=== PATIENT | male | born 1955 | race Caucasian/White ===

== ENCOUNTER 2017-03-18 16:05 | Inpatient (IN) | payer BC ==
[~2017-03-18] VITALS: Ht 182.9 cm; Wt 107.0 kg
[~2017-03-18 16:05] MED LIST: ALEVE220 M1 PO; ASPIRIN325 MG PO; BENADRYL25 M1 PO; BENAZEPRIL10 MG PO; FLEXERIL PO; LORTAB 5/3255 MG PO; METFORMIN500 MG PO; NO HOME MEDS PER PT; OMEPRAZOLE20 MG PO; ULTRAM50 M1 PO
[2017-03-18 16:21] VITALS: BP 169/103
[2017-03-18 17:36] LABS: HEMATOCRIT 36.6 % (39.0-50.0); HEMOGLOBIN 12.9 g/dl (14.0-18.0); IMMATURE GRANULOCYTES 0.3 % (0.0-1.0); MEAN CELL VOLUME 85.1 fL CALC (80.0-100.0); MEAN CORPUSCULAR HGB CONC 35.2 g/L CALC (32.0-36.0); NEUT# 10.59 thou/uL (1.82-7.42); RED BLOOD COUNT 4.3 mill/uL (4.70-6.10); RED CELL DISTRI WIDTH 13.1 % (11.5-15.5)
[2017-03-18 17:42] LABS: ALBUMIN 3.8 g/dL (3.2-5.0); ALKALINE PHOSPHATASE 79 u/l (38-126); ANION GAP 15 (6-22 (CALC)); BILIRUBIN, TOTAL 0.8 mg/dL (0.0-1.4); BUN 9 mg/dL (9-20); BUN/CREATININE RATIO 9 (12-20 (CALC)); CARBON DIOXIDE 24 mmol/l (22-30); CHLORIDE 104 mmol/l (95-108); GFR > 60 ML/MIN (>=60 (CALC)); GFR FOR AFR.AMER. > 60 ML/MIN (>=60 (CALC)); GLUCOSE 102 mg/dL (75-110); POTASSIUM 3.7 mmol/l (3.5-5.1); SGOT/AST 15 u/l (17-59); SGPT/ALT 26 u/l (21-72); SODIUM 139 mmol/l (137-146); TOTAL PROTEIN 7.2 g/dL (6.3-8.2)
[2017-03-18 19:46] VITALS: BP 149/98
[2017-03-18 19:50] VITALS: BP 120/67
[2017-03-18 21:19] LABS: URINE BILIRUBIN - DIPSTICK NEGATIVE (NEGATIVE); URINE BLOOD DIPSTICK NEGATIVE (NEGATIVE); URINE CLARITY CLEAR; URINE COLOR YELLOW; URINE GLUCOSE - DIPSTICK NEGATIVE (NEGATIVE); URINE KETONE NEGATIVE (NEGATIVE); URINE LEUK ESTERASE NEGATIVE (NEGATIVE); URINE NITRITE - DIPSTICK NEGATIVE (Negative); URINE PH 6.5 (4.5-8.0); URINE PROTEIN - DIPSTICK NEGATIVE (NEG-TRACE)
[2017-03-19] VITALS (7 sets, daily range): BP systolic 109–152; BP diastolic 67–91
[2017-03-19 05:49] LABS: HEMATOCRIT 35.7 % (39.0-50.0); HEMOGLOBIN 12.4 g/dl (14.0-18.0); IMMATURE GRANULOCYTES 0.4 % (0.0-1.0); MEAN CELL VOLUME 86.4 fL CALC (80.0-100.0); MEAN CORPUSCULAR HGB CONC 34.7 g/L CALC (32.0-36.0); NEUT# 8.08 thou/uL (1.82-7.42); RED BLOOD COUNT 4.13 mill/uL (4.70-6.10); RED CELL DISTRI WIDTH 13.1 % (11.5-15.5)
[2017-03-19 05:53] LABS: ANION GAP 13 (6-22 (CALC)); BUN 9 mg/dL (9-20); BUN/CREATININE RATIO 8 (12-20 (CALC)); CALCIUM 8.4 mg/dL (8.4-10.2); CARBON DIOXIDE 26 mmol/l (22-30); CHLORIDE 104 mmol/l (95-108); CREATININE 1.1 mg/dL (0.7-1.3); GFR > 60 ML/MIN (>=60 (CALC)); GFR FOR AFR.AMER. > 60 ML/MIN (>=60 (CALC)); GLUCOSE 125 mg/dL (75-110); POTASSIUM 4.3 mmol/l (3.5-5.1); SODIUM 139 mmol/l (137-146)
[2017-03-20 04:22] VITALS: BP 149/83
[2017-03-20 05:34] LABS: HEMATOCRIT 34.6 % (39.0-50.0); HEMOGLOBIN 12.2 g/dl (14.0-18.0); IMMATURE GRANULOCYTES 1.3 % (0.0-1.0); MEAN CELL VOLUME 86.1 fL CALC (80.0-100.0); MEAN CORPUSCULAR HGB 30.3 pG CALC (26.0-32.0); MEAN CORPUSCULAR HGB CONC 35.3 g/L CALC (32.0-36.0); NEUT# 7.01 thou/uL (1.82-7.42); RED BLOOD COUNT 4.02 mill/uL (4.70-6.10)
[2017-03-20 05:40] LABS: ANION GAP 12 (6-22 (CALC)); BUN 9 mg/dL (9-20); BUN/CREATININE RATIO 8 (12-20 (CALC)); CALCIUM 8.5 mg/dL (8.4-10.2); CARBON DIOXIDE 26 mmol/l (22-30); CHLORIDE 106 mmol/l (95-108); CREATININE 1.1 mg/dL (0.7-1.3); GFR > 60 ML/MIN (>=60 (CALC)); GFR FOR AFR.AMER. > 60 ML/MIN (>=60 (CALC)); GLUCOSE 149 mg/dL (75-110); POTASSIUM 4.4 mmol/l (3.5-5.1); SODIUM 140 mmol/l (137-146)
[2017-03-20 08:29] VITALS: BP 172/88
[2017-03-20 11:06] VITALS: BP 143/86
[2017-03-20 14:57] VITALS: BP 161/89
[2017-03-20 19:39] VITALS: BP 146/81
[2017-03-20 23:26] VITALS: BP 114/68
[2017-03-21 05:26] VITALS: BP 149/90
[2017-03-21 07:27] VITALS: BP 175/92
[2017-03-21 08:40] VITALS: BP 148/88
[2017-03-21] MEDS ORDERED: METRONIDAZOL500 MG PO (12:45)
[2017-03-21] MEDS ORDERED: CIPROFLOXACN500 MG PO (12:45)
[2017-03-21] MEDS ORDERED: AMLODIPINE BESYL5 MG PO (12:45)
[2017-03-21] MEDS ORDERED: FLORASTOR250 M1 PO (12:45)
[2017-03-21] MEDS ORDERED: LOPRESSOR 550 MG/TAB PO (12:45)
== END 2017-03-21 13:40 | disposition home or self-care (01) | DRG 392 ==
LOC: ENPENDDIS → MS2 16:05
PROVIDERS: Internal Medicine; ADMIT Internal Medicine; ATTEND Internal Medicine
DX: K57.32 Diverticulitis of large intestine without perforation or abscess without bleeding (principal); I47.2 Ventricular tachycardia; E11.9 Type 2 diabetes mellitus without complications; I10 Essential (primary) hypertension; K21.9 Gastro-esophageal reflux disease without esophagitis; F17.210 Nicotine dependence, cigarettes, uncomplicated; Z79.84 Long term (current) use of oral hypoglycemic drugs
CPT/HCPCS: J1650

== ENCOUNTER 2017-10-30 06:00 | Day surgery (SDC) | payer BC ==
[~2017-10-30] VITALS: Ht 185.4 cm; Wt 105.2 kg
[~2017-10-30 06:00] MED LIST changes: +AMLODIPINE BESYL5 MG PO; +CIPROFLOXACN500 MG PO; +FLORASTOR250 M1 PO; +LOPRESSOR 550 MG/TAB PO; +METRONIDAZOL500 MG PO
[2017-10-30 08:33] VITALS: BP 115/62
== END 2017-10-30 08:15 | disposition home or self-care (01) | DRG 392 ==
LOC: ENDO 06:00 → ORM 07:00 → ENDO 08:15
PROVIDERS: ATTEND Surgery
PROC: 0DBN8ZX Excision of Sigmoid Colon, Via Natural or Artificial Opening Endoscopic, Diagnostic (ICD-10-PCS; principal; 2017-10-30)
DX: K57.30 Diverticulosis of large intestine without perforation or abscess without bleeding (principal); K63.5 Polyp of colon; I10 Essential (primary) hypertension

== ENCOUNTER 2017-12-28 23:24 | Inpatient (IN) | payer BC ==
[~2017-12-28] VITALS: Ht 182.9 cm; Wt 105.5 kg
--- NOTE | 2017-12-28 23:30 | NUR ---
PT AMBULATING TO ROOM, NO OBVIOUS DISTRESS NOTED AT THIS TIME.
[2017-12-29] VITALS (7 sets, daily range): BP systolic 138–181; BP diastolic 77–96
[2017-12-29 00:14] LABS: URINE BILIRUBIN - DIPSTICK NEGATIVE (NEGATIVE); URINE BLOOD DIPSTICK NEGATIVE (NEGATIVE); URINE COLOR YELLOW; URINE GLUCOSE - DIPSTICK NEGATIVE (NEGATIVE); URINE KETONE NEGATIVE (NEGATIVE); URINE LEUK ESTERASE NEGATIVE (NEGATIVE); URINE NITRITE - DIPSTICK NEGATIVE (Negative); URINE PH 5.5 (4.5-8.0); URINE PROTEIN - DIPSTICK NEGATIVE (NEG-TRACE); URINE SPECIFIC GRAVITY 1.025; URINE UROBILINOGEN - DIPSTICK 0.2 E.U./dL (0.2)
[2017-12-29 00:15] LABS: URINE CLARITY CLEAR
[2017-12-29 00:17] LABS: HEMATOCRIT 34.1 % (39.0-50.0); HEMOGLOBIN 12.4 g/dl (14.0-18.0); IMMATURE GRANULOCYTES 0.4 % (0.0-1.0); MEAN CELL VOLUME 86.1 fL CALC (80.0-100.0); MEAN CORPUSCULAR HGB 31.3 pG CALC (26.0-32.0); MEAN CORPUSCULAR HGB CONC 36.4 g/L CALC (32.0-36.0); NEUT# 11.98 thou/uL (1.82-7.42); RED BLOOD COUNT 3.96 mill/uL (4.70-6.10); RED CELL DISTRI WIDTH 12.3 % (11.5-15.5)
--- NOTE | 2017-12-29 00:30 | NUR ---
pt resting comfortably with spouse by side. Bolus infusing, pain meds IVP, Antiemetic IM
[2017-12-29 00:34] LABS: ALBUMIN 4.2 g/dL (3.2-5.0); ALKALINE PHOSPHATASE 83 u/l (38-126); AMYLASE 290 u/l (30-110); ANION GAP 22 (6-22 (CALC)); BILIRUBIN, TOTAL 0.7 mg/dL (0.0-1.4); BUN 19 mg/dL (9-20); BUN/CREATININE RATIO 14 (12-20 (CALC)); CARBON DIOXIDE 19 mmol/l (22-30); CHLORIDE 108 mmol/l (95-108); CREATININE 1.4 mg/dL (0.7-1.3); GFR 52 ML/MIN (>=60 (CALC)); GFR FOR AFR.AMER. > 60 ML/MIN (>=60 (CALC)); POTASSIUM 4.5 mmol/l (3.5-5.1); SGOT/AST 22 u/l (17-59); SGPT/ALT 22 u/l (21-72); SODIUM 144 mmol/l (137-146); TOTAL PROTEIN 7.3 g/dL (6.3-8.2)
[2017-12-29 00:46] LABS: MYOGLOBIN 33 ng/mL (0 - 121)
[2017-12-29 00:47] LABS: LIPASE 2006 u/l (23-300)
--- NOTE | 2017-12-29 01:00 | NUR ---
Pt watching TV with spouse at bedside. Awaiting decision on admission
--- NOTE | 2017-12-29 02:59 | NUR ---
Report called to Bert on Med/Surg.
--- NOTE | 2017-12-29 03:05 | NUR ---
PATIENT ARRIVED TO THE FLOOR IN STABLE CONDITION VIA STRETCHER AND ACCOMPANIED BY ED NURSE. SETTLED PT TO BED AND THEN WEIGHED. ORIENT PT TO ROOM CALL SYSTEM. BED IN LOW POSITION AND CALL LIGHT IN REACH.
--- NOTE | 2017-12-29 03:20 | NUR ---
Transported to room via stretcher.
--- NOTE | 2017-12-29 07:19 | NUR ---
SHIFT CHANGE REPORT FROM LIYAH MORENO AWAKE AND ALERT RESTING IN BED, C/O ACHING PAIN TO MID-RIGHT ABDOMEN @ 8, IVF INFUSING, CALL FLORES IN REACH, WILL CONTINUE TO MONITOR AND ADDRESS NEEDS.
[2017-12-29 10:16] LABS: HEMATOCRIT 32.3 % (39.0-50.0); HEMOGLOBIN 11.8 g/dl (14.0-18.0); IMMATURE GRANULOCYTES 0.5 % (0.0-1.0); MEAN CELL VOLUME 86.6 fL CALC (80.0-100.0); MEAN CORPUSCULAR HGB 31.6 pG CALC (26.0-32.0); MEAN CORPUSCULAR HGB CONC 36.5 g/L CALC (32.0-36.0); NEUT# 7.54 thou/uL (1.82-7.42); RED BLOOD COUNT 3.73 mill/uL (4.70-6.10); RED CELL DISTRI WIDTH 12.4 % (11.5-15.5)
[2017-12-29 10:38] LABS: ANION GAP 15 (6-22 (CALC)); BUN 15 mg/dL (9-20); BUN/CREATININE RATIO 11 (12-20 (CALC)); CARBON DIOXIDE 25 mmol/l (22-30); CHLORIDE 108 mmol/l (95-108); CREATININE 1.4 mg/dL (0.7-1.3); GFR 52 ML/MIN (>=60 (CALC)); GFR FOR AFR.AMER. > 60 ML/MIN (>=60 (CALC)); LIPASE 681 u/l (23-300); POTASSIUM 4.1 mmol/l (3.5-5.1); SODIUM 144 mmol/l (137-146)
--- NOTE | 2017-12-29 12:00 | NUR ---
DR MEMBRENO HERE ROUNDING WITH PT AND WROTE ORDERS, PAIN ISSUE ADDRESSED, CALL FLORES IN REACH.
--- NOTE | 2017-12-29 12:00 | NUR ---
TEMPERATURE BEING MONITORED, NO NEW COMPLAINS, ALL NEEDS ADDRESSED, CALL FLORES IN REACH.
--- NOTE | 2017-12-29 16:00 | NUR ---
ATE LIQUID MEAL AND TOLERATED, ALL NEEDS ADDRESSED, CALL FLORES IN REACH.
--- NOTE | 2017-12-29 16:22 | NUR ---
RESTING IN BED, TEMPERATURE REMAINS SLIGHTLY ELEVATED WITH FLUCTUATIONS, DR MEMBRENO NOTIFIED OF LAST RESULT AND GAVE ORDERS FOR CULTURES, PT INFORMED OF PLAN AND STATED UNDERSTANDING.
--- NOTE | 2017-12-29 19:25 | NUR ---
REPORT RECIEVED; PT RESTING IN BED. PT DENIES PAIN AT THIS TIME. SAFETY PRECAUTIONS REINFORCED. IV PATENT. FREQUENT ROUNDS MADE. CALL LIGHT WITHIN REACH.
--- NOTE | 2017-12-29 20:15 | NUR ---
PT WOKE FOR ASSESSMENT; ALERT AND ORIENTED. RESP EVEN AND UNLABORED; NO DISTRESS NOTED. ABD DISTENDED; SOFT. HYPOACTIVE BOWEL SOUNDS NOTED. PT STATED SOME "ABDOMINAL TENDERNESS" IN THE LOWER ABDOMEN. PEDEAL PULSES PALPATED BILAT. IV LAC PATENT; NO REDNESS OR EDEMA NOTED. PT ENCOURAGED TO CALL FOR ASSISTANCE. CALL LIGHT WITHIN REACH.
--- NOTE | 2017-12-30 00:15 | NUR ---
RESP EVEN AND UNLABORED. IV PATENT; NO REDNESS OR EDEMA NOTED. CALL LIGHT WITHIN REACH.
[2017-12-30 03:36] VITALS: BP 134/78
--- NOTE | 2017-12-30 04:30 | NUR ---
RESP EVEN AND UNLABORED; ASSESSMENT UNCHANGED. IV PATENT; NO EDEMA OR REDNESS NOTED. CALL LIGHT WITHIN REACH.
[2017-12-30 04:56] LABS: HEMATOCRIT 30.1 % (39.0-50.0); IMMATURE GRANULOCYTES 0.3 % (0.0-1.0); MEAN CELL VOLUME 87.5 fL CALC (80.0-100.0); MEAN CORPUSCULAR HGB CONC 36.5 g/L CALC (32.0-36.0); NEUT# 6.69 thou/uL (1.82-7.42); RED BLOOD COUNT 3.44 mill/uL (4.70-6.10); RED CELL DISTRI WIDTH 12.4 % (11.5-15.5)
[2017-12-30 05:14] LABS: ANION GAP 16 (6-22 (CALC)); BUN 12 mg/dL (9-20); BUN/CREATININE RATIO 9 (12-20 (CALC)); CARBON DIOXIDE 22 mmol/l (22-30); CHLORIDE 110 mmol/l (95-108); CREATININE 1.4 mg/dL (0.7-1.3); GFR 52 ML/MIN (>=60 (CALC)); GFR FOR AFR.AMER. > 60 ML/MIN (>=60 (CALC)); LIPASE 268 u/l (23-300); POTASSIUM 4.2 mmol/l (3.5-5.1); SODIUM 144 mmol/l (137-146)
[2017-12-30 07:10] VITALS: BP 157/81
--- NOTE | 2017-12-30 07:35 | NUR ---
PT. IS AWAKE IN BED WATCHING TV. PATIENT IS ALERT AND ORIENTED X3. PERRLA, 3MM. PT'S LUNGS ARE CLEAR BILATERALLY. RESP. EVEN AND UNLABORED.CAP REFILL <3. ABDOMEN IS SOFT BUT DISTENDED. PT COMPLAINS OF PAIN IN THE LOWER ABDOMEN. PATIENT STATES PAIN TO BE A 7/10 AND THE QUALITY IS SHARP.HYPERACTIVE BOWEL SOUNDS NOTED. NO COMPLAINTS OF PAIN UPON URINATING. 20 GAUGE IN LAC INFUSING NORMAL SALINE AT 150. IV IS INTACT AND PATENT. PULSES ARE STRONG THROUGHOUT. NO EDEMA NOTED IN LEGS. PT. REMINDED TO CALL IF HE NEEDS ANYTHING. CALL LIGHT WITHIN REACH. WILL CONTINUE TO MONITOR.
--- NOTE | 2017-12-30 08:26 | NUR ---
PATIENT MEDICATED PER MD ORDER. MORPHINE 4MG IV Q4 GIVEN FOR ABDOMINAL PAIN.MEDICATION GIVEN BY WILEY REYNA. PT STATES PAIN IS A 7-8 AND HAS BECOME A STABBING PAIN.PT IS CURRENTLY SITTING UP IN RECLINER DOING A CROSS WORD PUZZEL. MEDICATION GIVEN. WILL CONTINUE TO MONITOR.
--- NOTE | 2017-12-30 08:30 | NUR ---
ASSESSMENT IS COMPLTED: IV SITE IS FREE FROM REDNESS OR EDEMA. BREATH SOUNDS ARE CLEAR, BILATERALLY, C/O LOWER ABD PAIN. HR IS REG, PULSES ARE STRONG X4. CONTINUE TO OSBERVE AND MONITOR.
[2017-12-30 08:52] LABS: CHOLESTEROL HDL RATIO 7.1 (<4.4 (CALC))
--- NOTE | 2017-12-30 09:00 | NUR ---
PAIN ASSESSMENT AFTER MEDICATION GIVEN. PT STATES THAT HIS PAIN IS STILL A 7/10 AND HAS NOT CHANGED IN QUALITY. PT IS STILL SITTING IN HIS RECLINER DOING A CROSS WORD PUZZLE. PT SPOUSE IS IN ROOM. WILL CONTINUE TO MONITOR.
[2017-12-30 11:24] VITALS: BP 147/81
--- NOTE | 2017-12-30 11:25 | NUR ---
IV SITE NEEDED TO BE CHANGED DUE TO STARTING TO BLEED, PINK, AND THEN HURTIMG PT. NEW IV SITE OBTAINED IN AFTER 3RD ATTEMPT. WITH 22,
--- NOTE | 2017-12-30 12:15 | NUR ---
PT IS SITTING UP IN THE BED, WITHNO DISTRESS NOTED. IV SITE IS FREE FROM REDNESS OR EDEMA. CONTINUE TO OBSERVE AND MONITOR.
--- NOTE | 2017-12-30 13:20 | NUR ---
IV SITE DISCONTINEUD CATHETER INTACT. NO REDNESS OR EDEMA. DISCHARGE INSTRUCTIONS GIVEN AND VERBALIZED UNDERSTANDING. Discharge instructions given. Patient verbalizes understanding of same. Discharged in poor condition via Wheelchair to Home with family. All belongings sent with pt.
== END 2017-12-30 13:40 | disposition home or self-care (01) | DRG 440 ==
LOC: ED 23:24 → ED-I 12-29 02:04 → ED 12-29 02:05 → MS2 12-29 02:06
PROVIDERS: Emergency Medicine; Nurse Practitioner Family; ADMIT Internal Medicine; ATTEND Internal Medicine
DX: K85.90 Acute pancreatitis without necrosis or infection, unspecified (principal); E11.9 Type 2 diabetes mellitus without complications; I10 Essential (primary) hypertension; K21.9 Gastro-esophageal reflux disease without esophagitis; F17.210 Nicotine dependence, cigarettes, uncomplicated

== ENCOUNTER 2021-06-22 10:57 | Emergency (ER) | payer OTHER ==
[2021-06-22 11:40] LABS: HEMATOCRIT 35.9 % (39.0-50.0); IMMATURE GRANULOCYTES 0.1 % (0.0-5.0); MEAN CELL VOLUME 88.6 fL CALC (80.0-100.0); MEAN CORPUSCULAR HGB 29.6 pG CALC (26.0-32.0); MEAN CORPUSCULAR HGB CONC 33.4 g/dL CAL (32.0-36.0); NEUT# 8.33 thou/uL (1.82-7.42); RED BLOOD COUNT 4.05 mill/uL (4.70-6.10); RED CELL DISTRI WIDTH 14.6 % (11.5-15.5)
[2021-06-22 13:36] LABS: ALBUMIN 3.6 g/dL (3.2-5.0); ALKALINE PHOSPHATASE 82 u/l (38-126); AMYLASE 73 u/l (30-110); BILIRUBIN, TOTAL 0.6 mg/dL (0.0-1.4); CHLORIDE 98 mmol/l (95-108); CREATININE 1.7 mg/dL (0.7-1.3); GFR 41 ML/MIN (>=60 (CALC)); GFR FOR AFR.AMER. 49 ML/MIN (>=60 (CALC)); LIPASE 111 u/l (23-300); MAGNESIUM 1.3 mg/dL (1.6-2.3); SGOT/AST 36 u/l (19-48); TOTAL PROTEIN 7.2 g/dL (6.3-8.2)
[2021-06-22 13:43] LABS: ANION GAP 15 (6-22 (CALC)); BUN 37 mg/dL (8-23); BUN/CREATININE RATIO 22 (12-20 (CALC)); CARBON DIOXIDE 27 mmol/l (22-30); SODIUM 135 mmol/l (137-146)
[2021-06-22 15:18] VITALS: BP 136/66
[2021-11-03] MEDS ORDERED: NORVASC5 M1 PO (10:04)
[2021-11-03] MEDS ORDERED: LANTUS SOLOSTAR SC (10:05)
[2021-11-03] MEDS ORDERED: HYDROCODONE BIT1 TA9 PO (10:05)
[2021-11-03] MEDS ORDERED: FUROSEMIDE20 MG PO (10:06)
[2021-11-03] MEDS ORDERED: FLUOXETINE20 MG PO (10:06)
[2021-11-03] MEDS ORDERED: CLOPIDOGREL75 MG PO (10:06)
[2021-11-03] MEDS ORDERED: AMIODARONE HCL200 MG PO (10:06)
[2021-11-03] MEDS ORDERED: ELIQUIS2.5 MG PO (10:07)
[2021-11-03] MEDS ORDERED: ROSUVASTATIN CA20 MG PO (10:07)
[2021-11-03] MEDS ORDERED: METOPROLOL100 M1 PO (10:07)
[2021-11-03] MEDS ORDERED: AMITRIPTYLINE H10 MG PO (10:07)
== END 2021-06-22 15:24 | disposition home or self-care (01) ==
LOC: ED 10:57
DX: E11.65 Type 2 diabetes mellitus with hyperglycemia (principal); I10 Essential (primary) hypertension; M79.89 Other specified soft tissue disorders; L53.8 Other specified erythematous conditions; F17.200 Nicotine dependence, unspecified, uncomplicated; Z79.4 Long term (current) use of insulin; Z89.511 Acquired absence of right leg below knee; Z86.14 Personal history of Methicillin resistant Staphylococcus aureus infection; Z20.822 Contact with and (suspected) exposure to COVID-19
CPT/HCPCS: J3475

== ENCOUNTER 2021-10-20 12:42 | Emergency (ER) | payer OTHER ==
[~2021-10-20] VITALS: Ht 185.4 cm; Wt 106.0 kg
[2021-10-20 14:25] LABS: HEMATOCRIT 32.1 % (39.0-50.0); HEMOGLOBIN 10.9 g/dl (14.0-18.0); IMMATURE GRANULOCYTES 0.2 % (0.0-5.0); MEAN CELL VOLUME 92.8 fL CALC (80.0-100.0); MEAN CORPUSCULAR HGB 31.5 pG CALC (26.0-32.0); NEUT# 7.26 thou/uL (1.82-7.42); RED BLOOD COUNT 3.46 mill/uL (4.70-6.10); RED CELL DISTRI WIDTH 17.1 % (11.5-15.5)
[2021-10-20 14:33] LABS: ALBUMIN 4.1 g/dL (3.2-5.0); BILIRUBIN, TOTAL 0.7 mg/dL (0.0-1.4); CREATININE 2.2 mg/dL (0.7-1.3); TOTAL PROTEIN 8.2 g/dL (6.3-8.2)
[2021-10-20 14:45] LABS: POTASSIUM 5.3 mmol/l (3.5-5.1)
[2021-10-20 15:30] VITALS: BP 140/70
== END 2021-10-20 15:30 | disposition short-term general hospital (02) ==
LOC: ED 12:42
DX: T82.49XA Other complication of vascular dialysis catheter, initial encounter (principal); I12.0 Hypertensive chronic kidney disease with stage 5 chronic kidney disease or end stage renal disease; E11.22 Type 2 diabetes mellitus with diabetic chronic kidney disease; N18.6 End stage renal disease; F17.210 Nicotine dependence, cigarettes, uncomplicated; Y83.8 Other surgical procedures as the cause of abnormal reaction of the patient, or of later complication, without mention of misadventure at the time of the procedure; Z99.2 Dependence on renal dialysis; Z79.84 Long term (current) use of oral hypoglycemic drugs

== ENCOUNTER 2022-01-24 09:44 | Observation (INO) | payer OTHER ==
[2022-01-24] VITALS (16 sets, daily range): BP systolic 98–122; BP diastolic 43–101
[~2022-01-24] VITALS: Ht 185.4 cm; Wt 125.0 kg
[~2022-01-24 09:44] MED LIST changes: +AMIODARONE HCL100 MG PO; +AMITRIPTYLINE H10 MG PO; +CLOPIDOGREL75 MG PO; +ELIQUIS2.5 MG PO; +FLUOXETINE40 MG PO; +FUROSEMIDE20 MG PO; +HYDROCODONE BIT1 TA9 PO; +LANTUS SOL100 UNIT/M SC; +METOPROLOL100 M1 PO; +NORVASC5 M1 PO; -OMEPRAZOLE20 MG PO; +PROTONIX20 M1 PO; +ROSUVASTATIN CA20 MG PO
[2022-01-24] MEDS ORDERED: BICITRA PO (11:53)
[2022-01-24] MEDS ORDERED: LOMOTIL2.5 MG PO (11:54)
[2022-01-24] MEDS ORDERED: ONDANSETRON4 MG PO (11:55)
[2022-01-24 12:09] LABS: HEMATOCRIT 27.6 % (39.0-50.0); HEMOGLOBIN 9.4 g/dl (14.0-18.0); IMMATURE GRANULOCYTES 0.7 % (0.0-5.0); MEAN CELL VOLUME 86.3 fL CALC (80.0-100.0); MEAN CORPUSCULAR HGB 29.4 pG CALC (26.0-32.0); MEAN CORPUSCULAR HGB CONC 34.1 g/dL CAL (32.0-36.0); NEUT# 1.91 thou/uL (1.82-7.42); RED BLOOD COUNT 3.2 mill/uL (4.70-6.10); RED CELL DISTRI WIDTH 17.3 % (11.5-15.5)
[2022-01-24 12:39] LABS: ALBUMIN 3.7 g/dL (3.2-5.0); BILIRUBIN, TOTAL 0.7 mg/dL (0.0-1.4); CREATININE 2.5 mg/dL (0.7-1.3); POTASSIUM 4.4 mmol/l (3.5-5.1); TOTAL PROTEIN 7.8 g/dL (6.3-8.2)
[2022-01-25 05:29] VITALS: BP 127/62
[2022-01-25 06:47] LABS: CREATININE 3.1 mg/dL (0.7-1.3); POTASSIUM 4.1 mmol/l (3.5-5.1)
[2022-01-25 06:54] LABS: MAGNESIUM 1.1 mg/dL (1.6-2.3)
[2022-01-25 09:42] VITALS: BP 119/81
[2022-01-25 15:54] VITALS: BP 115/66
[2022-01-25 18:46] VITALS: BP 138/67
[2022-01-26 00:53] LABS: URINE BILIRUBIN - DIPSTICK NEGATIVE (NEGATIVE); URINE BLOOD DIPSTICK NEGATIVE (NEGATIVE); URINE CLARITY CLEAR; URINE COLOR YELLOW; URINE GLUCOSE - DIPSTICK NEGATIVE (NEGATIVE); URINE KETONE NEGATIVE (NEGATIVE); URINE LEUK ESTERASE NEGATIVE (Negative); URINE NITRITE - DIPSTICK NEGATIVE (Negative); URINE PH 5.5 (4.5-8.0); URINE PROTEIN - DIPSTICK TRACE mg/dL (NEG-TRACE); URINE UROBILINOGEN - DIPSTICK 0.2 E.U./dL (0.2)
[2022-01-26 04:16] VITALS: BP 116/62
[2022-01-26 06:55] LABS: HEMATOCRIT 25.9 % (39.0-50.0); HEMOGLOBIN 8.8 g/dl (14.0-18.0); MEAN CORPUSCULAR HGB 29.2 pG CALC (26.0-32.0); RED BLOOD COUNT 3.01 mill/uL (4.70-6.10); RED CELL DISTRI WIDTH 16.9 % (11.5-15.5)
[2022-01-26 07:11] LABS: ALBUMIN 3.4 g/dL (3.2-5.0); BILIRUBIN, TOTAL 0.8 mg/dL (0.0-1.4); CREATININE 2.9 mg/dL (0.7-1.3); POTASSIUM 4.2 mmol/l (3.5-5.1); TOTAL PROTEIN 7.4 g/dL (6.3-8.2)
[2022-01-26 07:16] LABS: MAGNESIUM 2.2 mg/dL (1.6-2.3)
[2022-01-26 08:00] VITALS: BP 116/62
[2022-01-26] MEDS ORDERED: LASIX20 MG PO (15:19)
== END 2022-01-26 17:14 | disposition home or self-care (01) ==
LOC: ED 09:44 → ED-I 17:28 → ED 17:46 → MS2 17:47
PROVIDERS: Family Medicine; Internal Medicine; Internal Medicine Nephrology; Nurse Practitioner; ADMIT Internal Medicine; ATTEND Internal Medicine
DX: I13.0 Hypertensive heart and chronic kidney disease with heart failure and stage 1 through stage 4 chronic kidney disease, or unspecified chronic kidney disease (principal); I50.31 Acute diastolic (congestive) heart failure; N17.0 Acute kidney failure with tubular necrosis; C49.4 Malignant neoplasm of connective and soft tissue of abdomen; E11.22 Type 2 diabetes mellitus with diabetic chronic kidney disease; N18.30 Chronic kidney disease, stage 3 unspecified; E83.42 Hypomagnesemia; E87.1 Hypo-osmolality and hyponatremia; D63.1 Anemia in chronic kidney disease; I48.91 Unspecified atrial fibrillation; I49.5 Sick sinus syndrome; F17.210 Nicotine dependence, cigarettes, uncomplicated; Z95.0 Presence of cardiac pacemaker; Z89.611 Acquired absence of right leg above knee; Z79.899 Other long term (current) drug therapy
CPT/HCPCS: G0378; J3475

== ENCOUNTER 2022-02-23 11:04 | Inpatient (IN) | payer OTHER ==
[~2022-02-23] VITALS: Ht 185.4 cm; Wt 108.4 kg
[2022-02-23] VITALS (15 sets, daily range): BP systolic 76–130; BP diastolic 35–68
[~2022-02-23 11:04] MED LIST changes: +BICITRA PO; +LASIX20 MG PO; +LOMOTIL2.5 MG PO; +ONDANSETRON4 MG PO
[2022-02-23 13:11] LABS: HEMATOCRIT 24.3 % (39.0-50.0); HEMOGLOBIN 7.7 g/dl (14.0-18.0); IMMATURE GRANULOCYTES 0.5 % (0.0-5.0); MEAN CELL VOLUME 90.3 fL CALC (80.0-100.0); MEAN CORPUSCULAR HGB 28.6 pG CALC (26.0-32.0); MEAN CORPUSCULAR HGB CONC 31.7 g/dL CAL (32.0-36.0); NEUT# 4.98 thou/uL (1.82-7.42); RED BLOOD COUNT 2.69 mill/uL (4.70-6.10); RED CELL DISTRI WIDTH 20.8 % (11.5-15.5)
[2022-02-23 13:22] LABS: ALBUMIN 3.3 g/dL (3.2-5.0); BILIRUBIN, TOTAL 0.6 mg/dL (0.0-1.4); CREATININE 2.8 mg/dL (0.7-1.3); POTASSIUM 4.3 mmol/l (3.5-5.1); TOTAL PROTEIN 7.6 g/dL (6.3-8.2)
[2022-02-23 14:11] LABS: URINE BILIRUBIN - DIPSTICK NEGATIVE (NEGATIVE); URINE BLOOD DIPSTICK NEGATIVE (NEGATIVE); URINE COLOR YELLOW; URINE GLUCOSE - DIPSTICK NEGATIVE (NEGATIVE); URINE KETONE NEGATIVE (NEGATIVE); URINE LEUK ESTERASE NEGATIVE (NEGATIVE); URINE PH 5.5 (4.5-8.0); URINE PROTEIN - DIPSTICK NEGATIVE (NEG-TRACE); URINE UROBILINOGEN - DIPSTICK 0.2 E.U./dL (0.2)
[2022-02-23] MEDS ORDERED: PROCHLORPERAZINE5 M1 (14:12)
[2022-02-23] MEDS ORDERED: DIPHEN/ATROP2.5 MG PO (14:13)
[2022-02-23 14:14] LABS: URINE NITRITE - DIPSTICK NEGATIVE (Negative)
[2022-02-24] VITALS (7 sets, daily range): BP systolic 102–134; BP diastolic 54–82
[2022-02-24 05:29] LABS: HEMATOCRIT 24.8 % (39.0-50.0); HEMOGLOBIN 7.7 g/dl (14.0-18.0); MEAN CELL VOLUME 91.5 fL CALC (80.0-100.0); MEAN CORPUSCULAR HGB 28.4 pG CALC (26.0-32.0); RED BLOOD COUNT 2.71 mill/uL (4.70-6.10); RED CELL DISTRI WIDTH 20.9 % (11.5-15.5)
[2022-02-24 05:48] LABS: CREATININE 2.7 mg/dL (0.7-1.3); MAGNESIUM 1.9 mg/dL (1.6-2.3); POTASSIUM 4.4 mmol/l (3.5-5.1)
[2022-02-25 03:57] VITALS: BP 110/66
[2022-02-25 05:42] LABS: HEMATOCRIT 25.7 % (39.0-50.0); MEAN CELL VOLUME 91.5 fL CALC (80.0-100.0); MEAN CORPUSCULAR HGB 28.5 pG CALC (26.0-32.0); MEAN CORPUSCULAR HGB CONC 31.1 g/dL CAL (32.0-36.0); RED BLOOD COUNT 2.81 mill/uL (4.70-6.10); RED CELL DISTRI WIDTH 20.5 % (11.5-15.5)
[2022-02-25 06:07] LABS: CREATININE 2.5 mg/dL (0.7-1.3); MAGNESIUM 1.8 mg/dL (1.6-2.3); POTASSIUM 4.4 mmol/l (3.5-5.1)
[2022-02-25 08:28] VITALS: BP 124/73
[2022-02-25 10:36] VITALS: BP 122/77
[2022-02-25 14:32] VITALS: BP 110/64
[2022-02-25 20:00] VITALS: BP 129/65
[2022-02-26] VITALS (7 sets, daily range): BP systolic 97–129; BP diastolic 51–73
[2022-02-26 05:40] LABS: HEMATOCRIT 27.6 % (39.0-50.0); HEMOGLOBIN 8.6 g/dl (14.0-18.0); MEAN CELL VOLUME 91.7 fL CALC (80.0-100.0); MEAN CORPUSCULAR HGB 28.6 pG CALC (26.0-32.0); MEAN CORPUSCULAR HGB CONC 31.2 g/dL CAL (32.0-36.0); RED BLOOD COUNT 3.01 mill/uL (4.70-6.10); RED CELL DISTRI WIDTH 19.9 % (11.5-15.5)
[2022-02-26 05:57] LABS: CREATININE 2.3 mg/dL (0.7-1.3); MAGNESIUM 1.9 mg/dL (1.6-2.3); POTASSIUM 4.6 mmol/l (3.5-5.1)
[2022-02-27 04:56] VITALS: BP 116/70
[2022-02-27 05:45] LABS: HEMATOCRIT 28.8 % (39.0-50.0); HEMOGLOBIN 9.1 g/dl (14.0-18.0); MEAN CORPUSCULAR HGB 28.4 pG CALC (26.0-32.0); MEAN CORPUSCULAR HGB CONC 31.6 g/dL CAL (32.0-36.0); RED BLOOD COUNT 3.2 mill/uL (4.70-6.10); RED CELL DISTRI WIDTH 19.4 % (11.5-15.5)
[2022-02-27 06:06] LABS: CREATININE 2.3 mg/dL (0.7-1.3); MAGNESIUM 1.7 mg/dL (1.6-2.3); POTASSIUM 4.5 mmol/l (3.5-5.1)
[2022-02-27 08:40] VITALS: BP 119/71
[2022-02-27 10:02] VITALS: BP 153/85
[2022-02-27 15:39] VITALS: BP 130/66
[2022-02-27 18:51] VITALS: BP 154/64
[2022-02-27 23:28] VITALS: BP 147/76
[2022-02-28 04:07] VITALS: BP 146/68
[2022-02-28 05:29] LABS: HEMATOCRIT 30.6 % (39.0-50.0); HEMOGLOBIN 9.6 g/dl (14.0-18.0); MEAN CELL VOLUME 90.8 fL CALC (80.0-100.0); MEAN CORPUSCULAR HGB 28.5 pG CALC (26.0-32.0); MEAN CORPUSCULAR HGB CONC 31.4 g/dL CAL (32.0-36.0); RED BLOOD COUNT 3.37 mill/uL (4.70-6.10)
[2022-02-28 05:44] LABS: MAGNESIUM 1.7 mg/dL (1.6-2.3)
[2022-02-28 05:49] LABS: POTASSIUM 5.2 mmol/l (3.5-5.1)
[2022-02-28 07:33] VITALS: BP 128/63
[2022-02-28 10:26] VITALS: BP 142/79
[2022-02-28 14:07] VITALS: BP 121/68
[2022-03-01] VITALS (7 sets, daily range): BP systolic 110–148; BP diastolic 57–71
[2022-03-01 06:16] LABS: HEMATOCRIT 30.5 % (39.0-50.0); HEMOGLOBIN 9.6 g/dl (14.0-18.0); IMMATURE GRANULOCYTES 0.7 % (0.0-5.0); MEAN CELL VOLUME 89.7 fL CALC (80.0-100.0); MEAN CORPUSCULAR HGB 28.2 pG CALC (26.0-32.0); MEAN CORPUSCULAR HGB CONC 31.5 g/dL CAL (32.0-36.0); NEUT# 5.95 thou/uL (1.82-7.42); RED BLOOD COUNT 3.4 mill/uL (4.70-6.10); RED CELL DISTRI WIDTH 18.7 % (11.5-15.5)
[2022-03-01 06:22] LABS: ALBUMIN 3.2 g/dL (3.2-5.0); BILIRUBIN, TOTAL 0.4 mg/dL (0.0-1.4); CREATININE 2.1 mg/dL (0.7-1.3); MAGNESIUM 1.6 mg/dL (1.6-2.3); TOTAL PROTEIN 7.4 g/dL (6.3-8.2)
[2022-03-01 06:24] LABS: POTASSIUM 4.8 mmol/l (3.5-5.1)
[2022-03-02 04:15] VITALS: BP 117/63
[2022-03-02 05:20] LABS: HEMATOCRIT 29.9 % (39.0-50.0); HEMOGLOBIN 9.3 g/dl (14.0-18.0); IMMATURE GRANULOCYTES 0.5 % (0.0-5.0); MEAN CORPUSCULAR HGB 27.7 pG CALC (26.0-32.0); MEAN CORPUSCULAR HGB CONC 31.1 g/dL CAL (32.0-36.0); NEUT# 7.62 thou/uL (1.82-7.42); RED BLOOD COUNT 3.36 mill/uL (4.70-6.10); RED CELL DISTRI WIDTH 18.4 % (11.5-15.5)
[2022-03-02 05:30] LABS: ALBUMIN 3.2 g/dL (3.2-5.0); BILIRUBIN, TOTAL 0.4 mg/dL (0.0-1.4); CREATININE 2.1 mg/dL (0.7-1.3); MAGNESIUM 1.5 mg/dL (1.6-2.3); POTASSIUM 4.6 mmol/l (3.5-5.1); TOTAL PROTEIN 7.4 g/dL (6.3-8.2)
[2022-03-02 08:13] VITALS: BP 141/84
[2022-03-02 10:44] VITALS: BP 136/69
[2022-03-02 14:31] VITALS: BP 118/63
[2022-03-02] MEDS ORDERED: LASIX 40 MG TAB40 MG PO (16:00)
[2022-03-02 19:10] VITALS: BP 114/63
[2022-03-03] VITALS (7 sets, daily range): BP systolic 104–132; BP diastolic 55–71
[2022-03-03 05:25] LABS: HEMATOCRIT 34.3 % (39.0-50.0); HEMOGLOBIN 10.5 g/dl (14.0-18.0); MEAN CORPUSCULAR HGB 27.6 pG CALC (26.0-32.0); MEAN CORPUSCULAR HGB CONC 30.6 g/dL CAL (32.0-36.0); RED BLOOD COUNT 3.81 mill/uL (4.70-6.10); RED CELL DISTRI WIDTH 18.6 % (11.5-15.5)
[2022-03-03 05:49] LABS: CREATININE 2.2 mg/dL (0.7-1.3); MAGNESIUM 1.6 mg/dL (1.6-2.3); POTASSIUM 4.9 mmol/l (3.5-5.1)
[2022-03-04 04:19] VITALS: BP 118/54
[2022-03-04 05:19] LABS: HEMATOCRIT 29.8 % (39.0-50.0); HEMOGLOBIN 9.5 g/dl (14.0-18.0); MEAN CELL VOLUME 88.4 fL CALC (80.0-100.0); MEAN CORPUSCULAR HGB 28.2 pG CALC (26.0-32.0); MEAN CORPUSCULAR HGB CONC 31.9 g/dL CAL (32.0-36.0); RED BLOOD COUNT 3.37 mill/uL (4.70-6.10); RED CELL DISTRI WIDTH 18.1 % (11.5-15.5)
[2022-03-04 05:37] LABS: CREATININE 2.2 mg/dL (0.7-1.3); MAGNESIUM 1.5 mg/dL (1.6-2.3); POTASSIUM 4.6 mmol/l (3.5-5.1)
[2022-03-04 07:51] VITALS: BP 105/67
[2022-03-04 10:57] VITALS: BP 117/72
[2022-03-04 16:53] VITALS: BP 115/66
[2022-03-04 18:39] VITALS: BP 121/65
[2022-03-04 23:44] VITALS: BP 136/62
[2022-03-05 04:00] VITALS: BP 136/66
[2022-03-05 05:37] LABS: HEMOGLOBIN 9.6 g/dl (14.0-18.0); MEAN CELL VOLUME 88.1 fL CALC (80.0-100.0); MEAN CORPUSCULAR HGB 27.3 pG CALC (26.0-32.0); RED BLOOD COUNT 3.52 mill/uL (4.70-6.10); RED CELL DISTRI WIDTH 18.1 % (11.5-15.5)
[2022-03-05 05:51] LABS: CREATININE 2.4 mg/dL (0.7-1.3); MAGNESIUM 1.6 mg/dL (1.6-2.3); POTASSIUM 4.9 mmol/l (3.5-5.1)
[2022-03-05 10:58] VITALS: BP 117/70
[2022-03-05 15:08] VITALS: BP 124/69
[2022-03-05 22:32] VITALS: BP 117/65
[2022-03-06] VITALS (8 sets, daily range): BP systolic 101–155; BP diastolic 59–87
[2022-03-06 05:23] LABS: HEMATOCRIT 31.3 % (39.0-50.0); HEMOGLOBIN 9.7 g/dl (14.0-18.0); MEAN CELL VOLUME 87.9 fL CALC (80.0-100.0); MEAN CORPUSCULAR HGB 27.2 pG CALC (26.0-32.0); RED BLOOD COUNT 3.56 mill/uL (4.70-6.10); RED CELL DISTRI WIDTH 17.8 % (11.5-15.5)
[2022-03-06 05:59] LABS: CREATININE 2.5 mg/dL (0.7-1.3); MAGNESIUM 1.5 mg/dL (1.6-2.3)
[2022-03-06 06:07] LABS: POTASSIUM 5.3 mmol/l (3.5-5.1)
[2022-03-07 00:15] VITALS: BP 104/59
[2022-03-07 04:27] VITALS: BP 123/69
[2022-03-07 05:20] LABS: HEMATOCRIT 30.3 % (39.0-50.0); HEMOGLOBIN 9.7 g/dl (14.0-18.0); MEAN CELL VOLUME 86.8 fL CALC (80.0-100.0); MEAN CORPUSCULAR HGB 27.8 pG CALC (26.0-32.0); RED BLOOD COUNT 3.49 mill/uL (4.70-6.10); RED CELL DISTRI WIDTH 17.4 % (11.5-15.5)
[2022-03-07 05:37] LABS: CREATININE 2.3 mg/dL (0.7-1.3); POTASSIUM 4.8 mmol/l (3.5-5.1)
[2022-03-07 05:46] LABS: MAGNESIUM 2.6 mg/dL (1.6-2.3)
[2022-03-07 07:55] VITALS: BP 116/73
[2022-03-07 10:35] VITALS: BP 120/76
[2022-03-07 14:32] VITALS: BP 126/76
[2022-03-07 19:03] VITALS: BP 121/64
[2022-03-08] VITALS (31 sets, daily range): BP systolic 54–146; BP diastolic 36–126
[2022-03-08 05:23] LABS: HEMATOCRIT 31.8 % (39.0-50.0); MEAN CELL VOLUME 87.6 fL CALC (80.0-100.0); MEAN CORPUSCULAR HGB 27.5 pG CALC (26.0-32.0); MEAN CORPUSCULAR HGB CONC 31.4 g/dL CAL (32.0-36.0); RED BLOOD COUNT 3.63 mill/uL (4.70-6.10); RED CELL DISTRI WIDTH 17.8 % (11.5-15.5)
[2022-03-08 05:49] LABS: CREATININE 2.1 mg/dL (0.7-1.3); MAGNESIUM 2.3 mg/dL (1.6-2.3)
[2022-03-08 05:51] LABS: POTASSIUM 5.5 mmol/l (3.5-5.1)
== END 2022-03-08 21:50 | disposition expired | DRG 291 ==
LOC: ED 11:04 → ED-I 13:30 → ED 13:52 → MS2 13:53 → ICU 03-08 12:35
PROVIDERS: Family Medicine; Hospitalist; Nurse Practitioner; ADMIT Internal Medicine; ATTEND Internal Medicine
PROC: 5A09357 Assistance with Respiratory Ventilation, Less than 24 Consecutive Hours, Continuous Positive Airway Pressure (ICD-10-PCS; principal; 2022-03-08)
DX: I13.0 Hypertensive heart and chronic kidney disease with heart failure and stage 1 through stage 4 chronic kidney disease, or unspecified chronic kidney disease (principal); J96.01 Acute respiratory failure with hypoxia; I50.33 Acute on chronic diastolic (congestive) heart failure; N18.4 Chronic kidney disease, stage 4 (severe); C49.4 Malignant neoplasm of connective and soft tissue of abdomen; E11.22 Type 2 diabetes mellitus with diabetic chronic kidney disease; J44.9 Chronic obstructive pulmonary disease, unspecified; I48.91 Unspecified atrial fibrillation; D63.1 Anemia in chronic kidney disease; T46.2X5A Adverse effect of other antidysrhythmic drugs, initial encounter; I25.10 Atherosclerotic heart disease of native coronary artery without angina pectoris; K21.9 Gastro-esophageal reflux disease without esophagitis; F17.210 Nicotine dependence, cigarettes, uncomplicated; Z51.5 Encounter for palliative care; Z66 Do not resuscitate; F32.A Depression, unspecified; Z79.4 Long term (current) use of insulin; Z95.0 Presence of cardiac pacemaker; Z79.01 Long term (current) use of anticoagulants; Z89.611 Acquired absence of right leg above knee; Z79.02 Long term (current) use of antithrombotics/antiplatelets; Z79.899 Other long term (current) drug therapy; Z92.21 Personal history of antineoplastic chemotherapy; Z20.822 Contact with and (suspected) exposure to COVID-19
CPT/HCPCS: J2060; J3475